=== PATIENT | female | born 1955 | race Caucasian/White ===

== ENCOUNTER 2024-11-21 10:14 | Inpatient (IN) | payer MEDICARE, OTHER ==
[~2024-11-21] VITALS: Ht 172.7 cm; Wt 75.7 kg
[2024-11-21] VITALS (17 sets, daily range): BP systolic 79–189; BP diastolic 47–102; PULSE 16–89; RESP 13–22; TEMP 36.2–36.7; O2SAT 95–100
[~2024-11-21 10:14] MED LIST: ASPI-1406 PO; LOSA50TA41 PO
[2024-11-21 11:05] LABS: BASOPHILS % 0.3 % (0.0-2.0); EOSINOPHILS % 0.2 % (0.0-5.0); HEMATOCRIT. 39.7 % (36.0-48.0); HEMOGLOBIN. 13.4 g/dL (12.0-16.0); LYMPHOCYTES % 16.1 % (20.0-50.0); MEAN PLATELET VOLUME 8.3 fl (7.4-10.4); MONOCYTES % 4.1 % (2.0-8.0); NEUTROPHILS % 79.3 % (40.0-76.0); PLATELET 199 x1000/uL (130-400); RED BLOOD CELL COUNT 4.52 mill/uL (4.2-5.4); RED CELL DISTRIBUTION WIDTH 13.2 % (11.6-14.6)
[2024-11-21 11:16] LABS: CREATININE 0.9 mg/dL (0.6-1.0); UREA NITROGEN BLOOD 11 mg/dL (9-23)
[2024-11-21] MEDS: KETOROLAC 30MG/ML VIAL IV STA (11:27)
[2024-11-21] MEDS: ONDANSETRON HCL 4MG/2ML INJ IV STA (11:27)
[2024-11-21] MEDS: DIPHENHYDRAMINE 50MG/ML VIAL IV ONE (11:28)
[2024-11-21 11:49] LABS: INR 1.0
[2024-11-21 12:16] LABS: TROPONIN I HIGH SENSITIVITY 2056 ng/L (3.0-34)
[2024-11-21] MEDS ORDERED: HEPARIN 25,000 UNITS PREMIX 250 ML IV PRN (12:30)
[2024-11-21] MEDS ORDERED: HEPARIN 5000 UNITS/ML VIAL IV SCH ×2 (12:30→13:45)
[2024-11-21] MEDS ORDERED: HEPARIN 5000 UNITS/ML VIAL IV PRN ×2 (12:30→12:53)
[2024-11-21] MEDS: LABETALOL 5MG/ML 4ML INJ IV ONE (12:40)
[2024-11-21] MEDS ORDERED: NICARDIPINE 100 MG in SODIUM CHLORIDE 0.9% 60 ML IV PRN (12:45)
[2024-11-21] MEDS ORDERED: NICARDIPINE 40MG/200ML PREMIX 200 ML IV PRN ×2 (12:45→15:00)
[2024-11-21] MEDS: ASPIRIN 81MG TABLET PO ONE (12:51)
[2024-11-21] MEDS: SODIUM CHLORIDE 0.9% 500 ML IV ONE (12:54)
[2024-11-21] MEDS: HEPARIN 5000 UNITS/ML VIAL IV PRN (13:47)
[2024-11-21] MEDS: IOHEXOL-350 100 ML BOTTLE ONE (13:53)
[2024-11-21] MEDS: NITROGLYCERIN 50MG PREMIX 250 ML IV ONE (13:59)
[2024-11-21] MEDS ORDERED: ONDANSETRON HCL 4MG/2ML INJ IV PRN (14:00)
[2024-11-21] MEDS ORDERED: CLONIDINE 0.1MG TABLET PO PRN (14:00)
[2024-11-21] MEDS ORDERED: NIFEDIPINE XL 60MG TAB PO SCH (14:00)
[2024-11-21] MEDS ORDERED: LOSARTAN 100 MG TABLET PO SCH (14:15)
[2024-11-21] MEDS: LOSARTAN 100 MG TABLET PO SCH (14:36)
[2024-11-21] MEDS: NICARDIPINE 40MG/200ML PREMIX 200 ML IV PRN (15:06)
[2024-11-21 15:44] LABS: CLARITY URINE CLEAR (CLEAR); COLOR URINE YELLOW (YELLOW); GLUCOSE URINE NEGATIVE (NEGATIVE); KETONES URINE NEGATIVE (NEGATIVE); LEUKOCYTE ESTERASE URINE NEGATIVE (NEGATIVE); NITRITE URINE NEGATIVE (NEGATIVE); OCCULT BLOOD URINE NEGATIVE (NEGATIVE); PH URINE 8.0 (4.5-8.0); PROTEIN URINE TRACE (NEGATIVE); SPECIFIC GRAVITY URINE 1.014 (1.005-1.030); UROBILINOGEN URINE 0.2 E.U./dL (0.2-1.0)
[2024-11-21 16:06] LABS: *AMPHETAMINES SCREEN URINE NEGATIVE (NEGATIVE); *BARBITURATES SCREEN URINE NEGATIVE (NEGATIVE); *BENZODIAZEPINES SCREEN URINE NEGATIVE (NEGATIVE)
[2024-11-21 16:07] LABS: *COCAINE SCREEN URINE NEGATIVE (NEGATIVE); CANNABINOID URINE SCREEN NEGATIVE (NEGATIVE); ECSTASY MDMA SCREEN URINE NEGATIVE (NEGATIVE); METHADONE URINE SCREEN NEGATIVE (NEGATIVE); OPIATES URINE SCREEN NEGATIVE (NEGATIVE); PHENCYCLIDINE URINE SCREEN NEGATIVE (NEGATIVE)
[2024-11-21 16:12] LABS: BACTERIA URINE TRACE; RBC URINE 0-2 /hpf (0-2); SQUAMOUS EPITHELIAL CELL URINE FEW /lpf (RARE/1+); WBC URINE 0-2 /hpf (0-2)
[2024-11-21 17:25] LABS: TROPONIN I HIGH SENSITIVITY 8324 ng/L (3.0-34)
[2024-11-21] MEDS: ENOXAPARIN 40MG/0.4ML SYR SUBCUT SCH (21:38)
[2024-11-22] VITALS (57 sets, daily range): BP systolic 75–144; BP diastolic 52–91; PULSE 64–98; RESP 12–27; TEMP 36.6–37; O2SAT 97–100
[2024-11-22 02:19] LABS: TROPONIN I HIGH SENSITIVITY 5797 ng/L (3.0-34)
[2024-11-22] MEDS: SODIUM CHLORIDE 0.9% 250 ML IV ONE (04:02)
[2024-11-22 05:49] LABS: BASOPHILS % 0.3 % (0.0-2.0); EOSINOPHILS % 0.5 % (0.0-5.0); HEMATOCRIT. 38.4 % (36.0-48.0); HEMOGLOBIN. 13.2 g/dL (12.0-16.0); LYMPHOCYTES % 27.7 % (20.0-50.0); MEAN PLATELET VOLUME 9.1 fl (7.4-10.4); MONOCYTES % 7.8 % (2.0-8.0); NEUTROPHILS % 63.7 % (40.0-76.0); PLATELET 203 x1000/uL (130-400); RED BLOOD CELL COUNT 4.34 mill/uL (4.2-5.4); RED CELL DISTRIBUTION WIDTH 12.9 % (11.6-14.6)
[2024-11-22 06:09] LABS: TROPONIN I HIGH SENSITIVITY 3376 ng/L (3.0-34)
[2024-11-22 08:17] LABS: UREA NITROGEN BLOOD 21.0 mg/dL (9-23)
[2024-11-22 08:19] LABS: CREATININE 1.6 mg/dL (0.6-1.0)
[2024-11-22] MEDS: ASPIRIN 81MG TABLET PO SCH (09:26)
[2024-11-22] MEDS: SODIUM CHLORIDE 0.9% 500 ML IV ONE (10:23)
[2024-11-22 13:03] LABS: SODIUM URINE RANDOM 38 mEq/L
[2024-11-22] MEDS: ENOXAPARIN 40MG/0.4ML SYR SUBCUT NR (15:33)
[2024-11-22 16:25] LABS: OSMOLALITY URINE 308 mOsm/kg (500-850)
[2024-11-23] VITALS (10 sets, daily range): BP systolic 93–157; BP diastolic 55–95; PULSE 65–79; RESP 14–20; TEMP 36.1–36.9; O2SAT 92–98
[2024-11-23] MEDS: SODIUM CHLORIDE 0.9% 500 ML IV ONE (02:00)
[2024-11-23] MEDS: MIDODRINE HCL 5MG TABLET PO SCH (02:02)
[2024-11-23 06:34] LABS: CREATININE 0.9 mg/dL (0.6-1.0); UREA NITROGEN BLOOD 17 mg/dL (9-23)
[2024-11-23 06:35] LABS: PROTEIN TOTAL 6.5 g/dL (6.0-8.3)
[2024-11-23 06:36] LABS: ASPARTATE AMINOTRANSFERASE 20 IU/L (<34); BILIRUBIN DIRECT 0.2 mg/dL (<=3.0); BILIRUBIN TOTAL 0.7 mg/dL (0.1-1.0); PHOSPHORUS 3.3 mg/dL (2.5-4.9)
[2024-11-23 06:47] LABS: BASOPHILS % 0.2 % (0.0-2.0); EOSINOPHILS % 0.6 % (0.0-5.0); HEMATOCRIT. 36.0 % (36.0-48.0); HEMOGLOBIN. 12.1 g/dL (12.0-16.0); LYMPHOCYTES % 30.1 % (20.0-50.0); MEAN PLATELET VOLUME 8.8 fl (7.4-10.4); MONOCYTES % 10.3 % (2.0-8.0); NEUTROPHILS % 58.8 % (40.0-76.0); PLATELET 184 x1000/uL (130-400); RED BLOOD CELL COUNT 4.05 mill/uL (4.2-5.4); RED CELL DISTRIBUTION WIDTH 12.9 % (11.6-14.6)
[2024-11-23] MEDS ORDERED: NICARDIPINE 100MCG/ML 10ML VIAL (CATH LAB) IV ONE (11:00)
[2024-11-23] MEDS ORDERED: LIDOCAINE HCL 1% 20ML VIAL ONE (11:37)
[2024-11-23] MEDS ORDERED: ASPIRIN/SOD BICARB/CITRIC ACID 324MG TAB EFF ONE (11:37)
[2024-11-23] MEDS ORDERED: HEPARIN 1000 UNITS/ML 10ML ONE (11:38)
[2024-11-23] MEDS ORDERED: IODIXANOL 320MG/ML 100 ML BOTTLE IV ONE (11:38)
[2024-11-23] MEDS ORDERED: FENTANYL CITRATE/PF 50MCG/ML 2ML VIAL ONE (12:31)
[2024-11-23] MEDS ORDERED: MIDAZOLAM HCL 2 MG/2 ML VIAL ONE (12:31)
[2024-11-23] MEDS: SODIUM CHLORIDE 0.45% 1,000 ML IV ONE (13:15)
[2024-11-23] MEDS ORDERED: MORPHINE SULFATE 2 MG/ML INJ (NOT FOR IM USE) IV PRN (13:15)
[2024-11-23] MEDS ORDERED: ACETAMINOPHEN 325MG TABLET PO PRN (13:15)
[2024-11-23] MEDS ORDERED: ATROPINE SULFATE 1MG/10ML SYR IV PRN (13:15)
[2024-11-23] MEDS ORDERED: NALOXONE HCL 0.4MG/ML VIAL IV PRN (14:30)
[2024-11-23 17:52] LABS: TROPONIN I HIGH SENSITIVITY 1042 ng/L (3.0-34)
[2024-11-23] MEDS: ACETAMINOPHEN 325MG TABLET PO PRN (22:51)
[2024-11-24] VITALS: BP 112/71; PULSE 79; RESP 17; TEMP 36.6; O2SAT 96
[2024-11-24 04:00] VITALS: BP 112/56; PULSE 68; RESP 15; TEMP 36.6; O2SAT 95
[2024-11-24 08:00] VITALS: BP 140/76; PULSE 73; RESP 18; TEMP 36.7; O2SAT 99
[2024-11-24] MEDS ORDERED: LIP40 MT (08:44)
[2024-11-24 08:56] LABS: BASOPHILS % 0.6 % (0.0-2.0); EOSINOPHILS % 1.6 % (0.0-5.0); HEMATOCRIT. 35.3 % (36.0-48.0); HEMOGLOBIN. 11.9 g/dL (12.0-16.0); LYMPHOCYTES % 35.6 % (20.0-50.0); MEAN PLATELET VOLUME 8.7 fl (7.4-10.4); MONOCYTES % 9.9 % (2.0-8.0); NEUTROPHILS % 52.3 % (40.0-76.0); PLATELET 175 x1000/uL (130-400); RED BLOOD CELL COUNT 3.98 mill/uL (4.2-5.4); RED CELL DISTRIBUTION WIDTH 12.8 % (11.6-14.6)
[2024-11-24 09:03] LABS: CREATININE 0.9 mg/dL (0.6-1.0); UREA NITROGEN BLOOD 13 mg/dL (9-23)
[2024-11-24 10:29] VITALS: BP 140/76; PULSE 73; TEMP 98; O2SAT 99
== END 2024-11-24 14:51 | disposition home or self-care (01) | DRG 280 ==
LOC: ER 10:14 → EDBEDREQ 11:03 → EDBEDREQTM 11:03 → MICUSO 13:44 → EDBEDREQTM 13:46 → EDBEDREQSVC 13:46 → EDBEDREQ 13:46 → ENRESERV 13:59 → 5EST 11-22 22:20 → 3WST 11-23 14:13
PROVIDERS: ADMIT Internal Medicine; ATTEND Internal Medicine
PROC: 4A023N7 Measurement of Cardiac Sampling and Pressure, Left Heart, Percutaneous Approach (ICD-10-PCS; principal; 2024-11-23)
PROC: B211YZZ Fluoroscopy of Multiple Coronary Arteries using Other Contrast (ICD-10-PCS; 2024-11-23)
DX: I21.4 Non-ST elevation (NSTEMI) myocardial infarction (principal); N17.0 Acute kidney failure with tubular necrosis; E87.1 Hypo-osmolality and hyponatremia; I16.1 Hypertensive emergency; E78.5 Hyperlipidemia, unspecified; N28.1 Cyst of kidney, acquired; I10 Essential (primary) hypertension; I25.10 Atherosclerotic heart disease of native coronary artery without angina pectoris; Z55.6 Problems related to health literacy; Z79.82 Long term (current) use of aspirin; Z79.899 Other long term (current) drug therapy; Z87.891 Personal history of nicotine dependence; Z82.49 Family history of ischemic heart disease and other diseases of the circulatory system
CPT/HCPCS: 36415; 71045; 71275; 76770; 80048; 80076; 80305; 81003; 82533; 82550; 83735; 83880; 83935; 84100; 84300; 84443; 84484; 85025; 85379; 93005; 93458; 93970; 99291; A4606; C1769; C1887; C1893; J1200; J1644; J1650; J1885; J2003; J2250; J2405; J3010; J3490; J7040; Q9967